=== PATIENT | male | born 1975 | race Caucasian/White ===

== ENCOUNTER 2018-07-06 22:21 | Emergency (ER) | payer OTHER ==
--- NOTE | 2018-07-07 00:11 | EDM.PDOC ---
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 Previous injury to right shoulder. - Related Data Allergies Allergy/AdvReac Type Severity Reaction Status Date / Time codeine Allergy Hives Verified 07/06/18 22:44 Home Meds: Home Meds NK [No Known Home Meds] 07/06/18 [History] Past Medical History Neurological History: Reports: Migraines - Past Surgical History HEENT Surgical History: Reports: Oral Surgery GI Surgical History: Reports: Appendectomy Social & Family History - Tobacco Use Smoking Status *Q: Never Smoker Review of Systems - Review of Systems Review Of Systems: ROS reveals no pertinent complaints other than HPI. ED EXAM, GENERAL - Physical Exam Exam: See Below Exam Limited By: No Limitations General Appearance: Alert, WD/WN, Mild Distress Extremities: Other (Obvious elevation of clavicle at AC joint especially with certain movements. Tender AC. Coracoclavicular ligament non-tender.) Course - Vital Signs Last Recorded V/S: Last Vital Signs Temp 36.4 C 07/06/18 22:49 Pulse 81 07/06/18 22:49 Resp 16 07/06/18 22:49 BP 148/95 H 07/06/18 22:49 Pulse Ox 94 L 07/06/18 22:49 - Orders/Labs/Meds Orders: Active Orders 24 hr Category Date Time Status Shoulder Comp Lt [CR] Stat Exams 07/06/18 23:05 Taken - Radiology Interpretation Free Text/Narrative:: No fracture but some elevation of clavicle c/w AC separation. Departure - Departure Time of Disposition: 00:09 Disposition: Home, Self-Care 01 Condition: Fair Clinical Impression: AC separation - Discharge Information Referrals: PCP,None [Primary Care Provider] - Forms: ED Department Discharge Additional Instructions: Use sling for comfort. Apply ice. Use Hydrocodone as directed. May cause sedation. Followup at the CT next week to determine if you need surgery. - My Orders Last 24 Hours: My Active Orders 07/06/18 23:05 Shoulder Comp Lt [CR] Stat - Assessment/Plan Last 24 Hours: My Active Orders 07/06/18 23:05 Shoulder Comp Lt [CR] Stat
--- NOTE | 2018-07-07 08:56 | CR ---
Left shoulder There is mild superior displacement of the distal clavicle relative to the acromion. The findings mos t consistent with a AC joint separation. No fracture. The glenohumeral joint is unremarkable. Impression: 1. AC joint separation.
== END 2018-07-07 00:20 | disposition home or self-care (01) ==
LOC: JP.ED 22:21
DX: S43.102A Unspecified dislocation of left acromioclavicular joint, initial encounter (principal); W19.XXXA Unspecified fall, initial encounter; Z88.5 Allergy status to narcotic agent
CPT/HCPCS: 73030-26-LT; 73030-LT; 99284